=== PATIENT | male | born 1965 | race Caucasian/White ===

== ENCOUNTER 2025-04-20 09:43 | Day surgery (SDC) | payer OTHER ==
[~2025-04-20] VITALS: Ht 177.8 cm; Wt 122.8 kg
[~2025-04-20 09:43] MED LIST: NS 500 ML IV ONE
[2025-04-20] MEDS ORDERED: CeFAZolin Sodium 3,000 MG VIAL ONE (09:58)
[2025-04-20] MEDS ORDERED: LISINOPRIL (10:01)
[2025-04-20] MEDS ORDERED: PIOGLITAZONE HC15 MG (10:01)
[2025-04-20] MEDS ORDERED: Glucotrol Xl10 MG (10:01)
[2025-04-20] MEDS ORDERED: ROSUVASTATIN CA20 MG (10:01)
[2025-04-20] MEDS ORDERED: TERBINAFINE TAB 250 (10:01)
[2025-04-20] MEDS ORDERED: METFORMIN (10:01)
[2025-04-20] MEDS ORDERED: GLIPIZIDE 5 MG (10:02)
[2025-04-20] MEDS ORDERED: HYDROCHLOROT (10:02)
[2025-04-20] MEDS ORDERED: propofoL 20 ML IV ONE ×2 (10:06→10:39)
[2025-04-20] MEDS ORDERED: NS 500 ML IV ONE (10:12)
[2025-04-20] MEDS ORDERED: Ketorolac Tromethamine 30mg Vial ONE (10:22)
== END 2025-04-20 11:12 | disposition home or self-care (01) ==
LOC: ORSCSDS 09:43
PROVIDERS: Orthopaedic Surgery
PROC: 0LB70ZZ Excision of Right Hand Tendon, Open Approach (ICD-10-PCS; principal; 2025-04-20 11:05)
PROC: 0LN70ZZ Release Right Hand Tendon, Open Approach (ICD-10-PCS; principal; 2025-04-20 11:05)
DX: M65.311 Trigger thumb, right thumb (principal); R22.31 Localized swelling, mass and lump, right upper limb; M67.441 Ganglion, right hand; E11.9 Type 2 diabetes mellitus without complications; I10 Essential (primary) hypertension; E78.5 Hyperlipidemia, unspecified; E66.9 Obesity, unspecified; Z68.38 Body mass index [BMI] 38.0-38.9, adult; Z79.84 Long term (current) use of oral hypoglycemic drugs; Z79.899 Other long term (current) drug therapy
CPT/HCPCS: 82947; 88304; J0690; J1885; J2704; J7040

== ENCOUNTER → 2025-08-18 | Outpatient (CLI) | payer OTHER ==
[~2025-08-18] MED LIST changes: +GLIPIZIDE 5 MG; +Glucotrol Xl10 MG; +HYDROCHLOROT; +LISINOPRIL; +METFORMIN; -NS 500 ML IV ONE; +PIOGLITAZONE HC15 MG; +ROSUVASTATIN CA20 MG; +TERBINAFINE TAB 250
[2025-08-18 18:27] LABS: BASOPHILS ABSOLUTE AUTO 0.02 K/mm3 (0.00-0.23); BASOPHILS PERCENT AUTO 0 % (0-2); EOSINOPHILS ABSOLUTE AUTO 0.05 K/mm3 (0.00-0.68); EOSINOPHILS PERCENT AUTO 1 % (0-6); Hematocrit 40.6 % (37.0-53.0); Hemoglobin 14.7 g/dL (13.5-17.5); IMMATURE GRAN ABSOLUTE AUTO 0.01 K/mm3 (0.00-0.10); IMMATURE GRAN PERCENT AUTO 0 % (0-1); LYMPHOCYTES ABSOLUTE AUTO 2.13 K/mm3 (0.84-5.20); LYMPHOCYTES PERCENT AUTO 29 % (21-46); MONOCYTES ABSOLUTE AUTO 0.53 K/mm3 (0.16-1.47); MONOCYTES PERCENT AUTO 7 % (4-13); Mean Corpuscular HGB Conc 36.2 g/dL (31.5-36.5); Mean Corpuscular Volume 92 fL (80-100); NEUTROPHILS ABSOLUTE AUTO 4.70 K/mm3 (1.96-9.15); NEUTROPHILS PERCENT AUTO 63 % (41-73); NRBC ABSOLUTE 0.00 K/mm3 (0.00-0.02); NRBC Auto 0.0 /100 WBC (0.0-0.2); Platelet Count 308 K/mm3 (150-400); RDW Coefficient Variation 13.0 % (11.7-14.2); RDW Standard Deviation 43.4 fL (35.1-46.3)
[2025-08-18 18:48] LABS: Alanine Aminotransfer (ALT/SGP 53.0 U/L (12-78); Albumin, Blood 3.8 g/dL (3.4-5.0); Albumin/Globulin Ratio 1.1 (0.8-1.8); Anion Gap 11.0 mmol/L (3-11); Aspartate Aminotrans (AST/SGOT 23.0 U/L (12-37); Bilirubin, Total 0.5 mg/dL (0.1-1.0); Blood Urea Nitrogen 18.0 mg/dL (8-24); CO2, Blood 31.0 mmol/L (21-32); Calcium, Blood 9.4 mg/dL (8.5-10.1); Chloride, Blood 98.0 mmol/L (98-108); Creatinine, Blood 1.02 mg/dL (0.60-1.20); Globulin, Blood 3.4 g/dL (2.2-4.0); Glucose, Blood 262.0 mg/dL (70-99); Potassium, Blood 3.9 mmol/L (3.5-5.5); Sodium, Blood 136.0 mmol/L (136-145); Thyroid Stimulating Hormone 2.068 uIU/mL (0.360-4.800); Total Protein, Blood 7.2 g/dL (6.4-8.2)
== END ==
LOC: LAB SHORT 18:24 → LAB 18:24
PROVIDERS: Physician Assistant
DX: R00.0 Tachycardia, unspecified (principal)
CPT/HCPCS: 80053; 84443; 85025; 85379